=== PATIENT | male | born 1965 | race African-American/Black ===

== ENCOUNTER 2019-10-11 16:40 | Emergency (ER) | payer OTHER ==
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
[2019-10-11 17:10] VITALS: BP 147/99; PULSE 90; TEMP 97.9; BMI 29.0
[2019-10-11] MEDS ORDERED: CYCLOBENZAPRINE HCL 10 MG TABLET (FP) ONE (17:27)
[2019-10-11] MEDS ORDERED: KETOROLAC TROMETHAMINE 60 MG/2 ML VIAL ONE (17:27)
[2019-10-11] MEDS: CYCLOBENZAPRINE HCL 10 MG TABLET (FP) PO ONE ×2 (17:28→17:35)
[2019-10-11] MEDS: KETOROLAC TROMETHAMINE 60 MG/2 ML VIAL IM ONE ×2 (17:28→17:34)
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
[2019-10-12] MEDS ORDERED: CYCLOBENZAPRINE HCL 5 MG TABLET PO ONE (17:27)
== END 2019-10-11 18:13 | disposition home or self-care (01) ==
LOC: JERFT 16:40
DX: S16.1XXA Strain of muscle, fascia and tendon at neck level, initial encounter (principal); S39.012A Strain of muscle, fascia and tendon of lower back, initial encounter; V73.5XXA Driver of bus injured in collision with car, pick-up truck or van in traffic accident, initial encounter; Y93.89 Activity, other specified; Y92.410 Unspecified street and highway as the place of occurrence of the external cause; Y99.0 Civilian activity done for income or pay; E78.5 Hyperlipidemia, unspecified; I10 Essential (primary) hypertension
CPT/HCPCS: 99281-25